=== PATIENT | female | born 1950 | race Caucasian/White ===

== ENCOUNTER 2024-01-18 05:57 | Day surgery (SDC) | payer MEDICARE, OTHER ==
[2024-01-12 13:22] VITALS: BMI 30.7
[2024-01-18] MEDS ORDERED: Sevoflurane 250 ML INH ANEST BOTTLE ONE (06:24)
[2024-01-18] MEDS ORDERED: Dexmedetomidine 200 MCG/2 ML VIAL ONE (06:24)
[2024-01-18] MEDS ORDERED: EPINEPHrine 1 MG/ML VIAL ONE (07:48)
[2024-01-18] MEDS ORDERED: Lidocaine 1% (PF) 30 ML VIAL ONE ×2 (07:49→07:51)
[2024-01-18] MEDS ORDERED: CEFAZOLIN 2 GM VIAL ONE (07:50)
[2024-01-18] MEDS ORDERED: Vancomycin 1 GM VIAL ONE (07:51)
[2024-01-18] MEDS ORDERED: Ondansetron PF 4 MG/2 ML Vial ONE (07:59)
[2024-01-18] MEDS ORDERED: PROPOFOL 20 ML ONE ×2 (07:59→08:01)
[2024-01-18] MEDS ORDERED: Midazolam HCl 2 mg/2 ml Vial ONE (07:59)
[2024-01-18] MEDS ORDERED: Rocuronium Bromide 10 MG/ML (10ML VIAL) ONE (07:59)
[2024-01-18] MEDS ORDERED: Lidocaine 1% PF 5 ML VIAL ONE (07:59)
[2024-01-18] MEDS ORDERED: Fentanyl 250 MCG/5 ML VIAL ONE (07:59)
[2024-01-18] MEDS ORDERED: Dexamethasone 20 MG/5 ML VIAL ONE (07:59)
[2024-01-18] MEDS ORDERED: ePHEDrine Sulfate 50 MG/10 ML VIAL ONE (08:32)
[2024-01-18] MEDS ORDERED: Vasopressin 20 UNITS/ML VIAL ONE (09:25)
== END 2024-01-18 12:00 | disposition home or self-care (01) ==
LOC: CSHSDC 05:57
PROVIDERS: ATTEND Otolaryngology Otolaryngic Allergy
PROC: 4A1ZXQZ Monitoring of Sleep, External Approach (ICD-10-PCS; principal; 2024-01-18)
DX: G47.33 Obstructive sleep apnea (adult) (pediatric) (principal); E11.9 Type 2 diabetes mellitus without complications; I10 Essential (primary) hypertension; Z96.659 Presence of unspecified artificial knee joint; Z90.710 Acquired absence of both cervix and uterus
CPT/HCPCS: 42975; 64582; 71046; C1820; C1898; J0171; J1100; J2001; J2405; J2704; J3010; J3370; C1787; J2250